=== PATIENT | male | born 1960 | race Caucasian/White ===

== ENCOUNTER 2016-10-12 11:54 | Emergency (ER) | payer OTHER ==
[~2016-10-12] VITALS: Ht 172.7 cm; Wt 79.5 kg
[2016-10-12 11:57] VITALS: BP 184/98; PULSE 84; RESP 20; TEMP 98.4; O2SAT 98
--- NOTE | 2016-10-12 12:32 | PD ---
HPI Chief Complaint: Exposure to Blood/Body Fluids Time Seen by Provider: 12:21 Travel History International Travel<30 days: No Contact w/Intl Traveler<30days: No Traveled to known affect area: No History of Present Illness HPI 56-year-old male presents to the emergency department for evaluation of bodily fluid exposure. The patient is a nurse here at [employer] and had a patient through a full bottle of urine onto him. States that the urine splashed into his face and eyes. States that he did immediately irrigate his eyes. States that the patient is elderly with a history of dementia however does not have a known history of hepatitis or HIV. The patient denies any medical complaints. Denies any blurred vision, vision loss, eye redness or drainage, itching. No other complaints. PFSH Past Medical History Medical History: Denies Significant Hx Social History Alcohol Use: No Tobacco Use: No Substance Use: No Allergies-Medications (Allergen,Severity, Reaction): Coded Allergies: No Known Allergies (Unverified , 10/12/16) Review of Systems Except as stated in HPI: all other systems reviewed are Neg Physical Exam Narrative GENERAL: Well-nourished and well-developed pleasant male patient in no acute distress who is nontoxic appearing. SKIN: Warm and dry. HEAD: Normocephalic and atraumatic. EYES: No injection, drainage, or hyphema noted. PERRLA. EOMI. ENT: No nasal drainage noted. Oropharynx is clear. NECK: Supple and the trachea is midline. CARDIOVASCULAR: Regular rate and rhythm. RESPIRATORY: Breath sounds are equal bilaterally with no accessory muscle use, wheezing, rhonchi, or crackles. GASTROINTESTINAL: Abdomen is soft, non-tender, and nondistended. MUSCULOSKELETAL: No obvious deformities, swelling, cyanosis, or ecchymosis is present throughout the upper and lower extremities. Patient has full range of motion without any signs of neurovascular compromise. NEUROLOGICAL: Awake, alert, and oriented. Normal speech and gait. Cranial nerves are grossly intact. Data Data Last Documented VS Vital Signs Date Time Temp Pulse Resp B/P Pulse Ox O2 Delivery O2 Flow Rate FiO2 10/12/16 11:57 98.4 84 20 184/98 98 Room Air MDM Medical Decision Making Medical Screen Exam Complete: Yes Emergency Medical Condition: Yes Differential Diagnosis Exposure to bodily fluids versus post exposure prophylaxis versus medical clearance Narrative Course 56-year-old male presents to the emergency department for evaluation of exposure to bodily fluids after urine was splashed into his eyes. Patient is afebrile, vital signs are stable. No medical complaints at this time. Physical examination is unremarkable. I discussed the patient that this is low risk of transmission. He was given the option to receive postexposure prophylactic therapy although I do not recommend it. The patient elects not to receive postexposure prophylactic therapy at this time. He is instructed to follow-up with employee med. Patient verbalizes understanding and agreement with treatment plan. Diagnosis Primary Impression: Employee exposure to body fluids Referrals: [facility] Patient Instructions: General Instructions, Postexposure Prophylaxis (ED) Additional Instructions: Follow-up with [employer]. Return to the ED for any acute worsening of symptoms. Med/Other Pt SpecificInfo: No Change to Meds Disposition: 01 DISCHARGE HOME Condition: Stable Xochitl Castelan October 12, 2016 12:32
== END 2016-10-12 12:35 | disposition home or self-care (01) ==
LOC: NEPD 11:54
DX: S09.93XA Unspecified injury of face, initial encounter (principal); Y08.89XA Assault by other specified means, initial encounter; Z77.21 Contact with and (suspected) exposure to potentially hazardous body fluids; Y93.F9 Activity, other caregiving; Y92.239 Unspecified place in hospital as the place of occurrence of the external cause; Y99.0 Civilian activity done for income or pay
CPT/HCPCS: 99281